=== PATIENT | female | born 1975 | race African-American/Black ===

== ENCOUNTER 2024-11-17 00:46 | Day surgery (SDC) | payer OTHER, SELFPAY ==
[2024-10-29 08:43] VITALS: BMI 25.3
--- OUTSIDE RECORDS SUMMARY | 2024-11-17 00:48 | XMS_ITS | Data Portability ---
Author Organization [facility] Arechiga Address [address] [place] [place] [address] Assessment Encounter Date Assessment Date Assessment LastModified by Organization Details LastModified Time 01/28/2023 01/28/2023 Is currently not using any substances. Encouraged her to have a plan in place for moments that she may be feeling the urge to use. I suggested she have someone she can call or an AA meeting she can attend. giorgio Not available 01/28/2023 12:02:51 Plan of Treatment Reminders Order Date Submit Date Provider Last Modified By Organization Details Last Modified Time Details Appointments ANNUAL 30 2024 03:00P M Isabel Porras MD Not available Not available Not available ANY 15 2024 11:00A M Myranda Granados MD Not available Not available Not available Lab urinalysi s, dipstick 2024 025 [email or web address] In-Office Order, Internal Use Only DO Not Attach Compendium DO Not Attach Compendium, Do Not Delete/merge, [id number] 10/04/2024 15:17:58 bacterial vaginosis + vaginitis panel, vaginal 2024 025 DAVID LABZACH, [address], [address], [place], [address], 10/10/2024 06:43:33 urinalysi s macro (dipstick ) panel, urine 2024 025 DAVID WEINSTEIN, [address], [address], [place], [address], 08/17/2024 08:28:21 CMP, serum or plasma 2024 025 [facility], [address], [address], [place], [address], 08/17/2024 08:28:19 CBC 2024 025 DAVID [facility], [address], [address], [place], [address], 08/17/2024 08:28:22 vitamin D, 25-hydrox y, total, serum 2024 025 [place] [facility], [address] [facility] [address], [address], [place], [address], 08/17/2024 08:28:24 lipid panel, serum 2024 025 [place] [facility], [address] [place], [place] [address]mar[address], [address], [place], [address], 08/17/2024 08:28:18 TSH, ultra-sen sitive, serum 2022 023 [facility], [address], [address], [place], [address], 01/08/2023 06:18:00 unlisted lab - nuswab bv, CT/GC/TV 2022 023 [place] [facility], [address], [address], [place], [address], 01/09/2023 08:35:00 pap, IG + reflex HPV 2022 023 [facility], [address] [place], [place] [address]mar[address], [address], [place], [address], 01/10/2023 15:11:02 CBC w/ auto diff 2022 023 [facility] [facility], [address], [address], [place], [place], [address], 11/25/2022 19:08:46 urinalysi s, dipstick 2022 023 [facility], [facility] [address], [address], [place], [address], 11/25/2022 19:08:45 lipid panel, serum 2022 023 [place] [facility], [facility] [address], [address], [place], [address], 11/25/2022 19:08:44 CMP, serum or plasma 2022 023 [facility], [facility] [address], [address], [place], [address], 11/25/2022 19:08:44 HIV 1 + 2, meaningfu l use set 2022 023 [facility], [facility], [address], [place], [address], 11/26/2022 06:15:31 Hepatitis C IgG Ab, qual, serum 2022 023 [facility], [facility] [facility] [address], [address], [place], [address], 11/26/2022 06:15:30 Referral orthopedi c surgeon referral 2024 025 [facility], [address], [place], [address], 09/27/2024 15:02:45 gastroent erologist referral 2024 025 DVAID Villela MD, [address], [place], [address], 09/30/2024 04:21:17 general surgeon referral - L. breast mass 2022 023 DAVID Santiago MD, [address], [address], [place], [address], 01/21/2023 10:48:53 gastroent erologist referral - Follow up colonosco py 2022 023 earl Mooney MD, [address] [place], [address], 06/10/2023 10:22:31 gynecolog ist referral 2022 023 [email or web address] Not available 11/25/2022 15:34:15 Procedures None recorded. Surgeries None recorded. Imaging MAMMO, diagnosti c, digital, bilateral - Left breast mass 2022 023 [facility], [address] [place], [address], 12/04/2022 16:59:55 US, breast, bilateral - Breast mass, left 2022 023 [facility], [address] [place], [address], 12/05/2022 09:37:59 Medication Orders paroxetin e 10 mg tablet 2024 025 [place] [id number], [address] [place], [place], [id number], 10/04/2024 15:23:32 Replens vaginal gel 2024 025 [place] [facility][id number], [address] [place], [place], [id number], 10/04/2024 15:23:37 naproxen 500 mg tablet 2024 025 [facility][id number], [address] [place], [place], [id number], 08/06/2024 15:25:06 Paxil 10 mg tablet 2022 023 [facility][id number], [address] [place], [place], [id number], 08/06/2024 14:40:47 Paxil 10 mg tablet 2022 023 [facility] #[id number], [address] [place], [place], [id number], 08/06/2024 14:40:47 Patient TargetsNo targets recorded. Patient Instructions Encounter Date Encounter Id Patient Instructions Last Modified By Organization Details Last Modified Time 11/22/2022 [id number] Quitting Tobacco : Care Instructions [email or web address] Not available 11/22/2022 14:47:54 Labs MMG +/- General surgeon [facility] Follow up in 2 weeks Most recent [facility] from [facility], please oajao Not available 11/22/2022 14:41:39 08/06/2024 [id number] [facility] Orthoped[facility] Naproxen PRN GI Stop smoking Most recent MM[facility] Follow up in 6 months and PRN oajao Not available 08/06/2024 15:23:04 Reason for Referral Acid Bath Mixer Referral for Screening for malignant neoplasm of colon Screening colonoscopy, please Follow up colonoscopy Referring Physician: Myranda Granados, Internal Medicine, Encounter Date: 11/22/2022 Sales Solutions Representative Referral for Sc reening for malignant neoplasm of cervix Referring Physician: Myranda Granados, Internal Medicine, Encounter Date: 11/22/2022 General Surgeon Referral for Mass of left breast L. breast mass Referring Physician: Myranda Granados, Internal Medicine, Encounter Date: 11/22/2022 Acid Bath Mixer Referral for Tubular adenomatous polyp of colon Hx of Tubular adenoma, follow up colonoscopy. Hx of breast cancer Referring Physician: Myranda Granados, Internal Medicine, Encounter Date: 08/06/2024 Orthopedic Surgeon Referral for Sprain of ligament of finger of right hand Sprain of the ring finger of the right hand Referring Physician: Myranda Granados, Internal Medicine, Encounter Date: 08/06/2024 Results Created Date Observation Date Name Description Value Unit Range Abnormal Flag Note LastModifiedBy Organization Detail LastModifiedTime 11/26/1911/25/2022 LIPID PANEL cholesterol, total 168.0 mg/dL 140.0- 200.0 Not Available [facility] Department [address] [place] [address], [address], 11/25/2022 19:08:44 11/26/19 23 11/25/2022 LIPID PANEL triglyceride s 97 mg/dL <=150 Not Available [facility] Department [address] [place] [address], [address], 11/25/2022 19:08:44 11/26/19 23 11/25/2022 LIPID PANEL HDL cholesterol 61.5 mg/dL 40.0-1 00.0 Not Available [facility] Department [address] [place] [address], [address], 11/25/2022 19:08:44 11/26/19 23 11/25/2022 LIPID PANEL VLDL cholesterol rick 19.40 mg/dL 5.00-4 0.00 Not Available [facility] Department [address] [place] [address], [address], 11/25/2022 19:08:44 11/26/19 23 11/25/2022 LIPID PANEL LDL chol calc ([facility]) 88.9 mg/dL 0.0-99 .0 Not Available [facility] Department [address] [place], [address], 11/25/2022 19:08:44 11/26/19 23 11/25/2022 COMP. METAB OLIC PANEL (14) glucose 95 mg/dL 65-99 ANION GP 15.0 mmol/ L N OSMOL 279.0 mOsM/ L N REFER ENCE RANGE : 275.0 -301. 0 Not Available [facility] Department [address] [place], [address], 11/25/2022 19:08:44 11/26/19 23 11/25/2022 COMP. METAB OLIC PANEL (14) BUN 13 mg/dL 8-26 Not Available [facility] Department [address] [place], [address], 11/25/2022 19:08:44 11/26/19 23 11/25/2022 COMP. METAB OLIC PANEL (14) creatinine 0.62 mg/dL 0.50-1 .40 Not Available [facility] Department [address] [place], [address], 11/25/2022 19:08:44 11/26/19 23 11/25/2022 COMP. METAB OLIC PANEL (14) eGFR 109 mL/mi n/1.7 3 >=60 Not Available [facility] Department [address] [place], [address], 11/25/2022 19:08:44 11/26/19 23 11/25/2022 COMP. METAB OLIC PANEL (14) BUN/creatini ne ratio 21.1 Not Available [facility] Department [address] [place], [address], 11/25/2022 19:08:44 11/26/19 23 11/25/2022 COMP. METAB OLIC PANEL (14) sodium 140.0 mmol/ L 136.0- 144.0 Not Available [facility] Department [address] [place], [address], 11/25/2022 19:08:44 11/26/19 23 11/25/2022 COMP. METAB OLIC PANEL (14) potassium 4.5 mmol/ L 3.5-5. 3 Not Available [facility] Department [address] [place], [address], 11/25/2022 19:08:44 11/26/19 23 11/25/2022 COMP. METAB OLIC PANEL (14) chloride 103 mmol/ l 101-11 1 Not Available [facility] Department [address] [place], [address], 11/25/2022 19:08:44 11/26/19 23 11/25/2022 COMP. METAB OLIC PANEL (14) carbon dioxide, total 26.3 mmol/ L 21.0-3 2.0 Not Available [facility] Department [address] [place], [address], 11/25/2022 19:08:44 11/26/19 23 11/25/2022 COMP. METAB OLIC PANEL (14) calcium 9.3 mg/dL 8.2-10 .0 Not Available [facility] Department [address] [place], [address], 11/25/2022 19:08:44 11/26/19 23 11/25/2022 COMP. METAB OLIC PANEL (14) protein, total 6.6 g/dL 6.7-8. 2 below low normal Not Available [facility] Department [address] [place], [address], 11/25/2022 19:08:44 11/26/19 23 11/25/2022 COMP. METAB OLIC PANEL (14) albumin 4.1 g/dL 3.5-5. 5 Not Available [facility] Department [address] [place], [address], 11/25/2022 19:08:44 11/26/19 23 11/25/2022 COMP. METAB OLIC PANEL (14) globulin, total 2.5 g/dL 1.5-4. 5 Not Available [facility] Department [address] [place], [address], 11/25/2022 19:08:44 11/26/19 23 11/25/2022 COMP. METAB OLIC PANEL (14) A/G ratio 1.7 Not Available [facility] Department [address] [place], [address], 11/25/2022 19:08:44 11/26/19 23 11/25/2022 COMP. METAB OLIC PANEL (14) bilirubin, total 0.2 mg/dL 0.0-1. 2 Not Available [facility] Department [address] [place], [address], 11/25/2022 19:08:44 11/26/19 23 11/25/2022 COMP. METAB OLIC PANEL (14) alkaline phosphatase 113.2 IU/L 42.0-1 21.0 Not Available [facility] Department [address] [place] [address], [address], 11/25/2022 19:08:44 11/26/19 23 11/25/2022 COMP. METAB OLIC PANEL (14) AST (SGOT) 15.3 U/L 10.0-4 2.0 Not Available [facility] Department [address] [place] [address], [address], 11/25/2022 19:08:44 11/26/19 23 11/25/2022 COMP. METAB OLIC PANEL (14) ALT (SGPT) 14.6 U/L 10.0-6 0.0 Not Available [facility] Department [address] [place] [address], [address], 11/25/2022 19:08:44 11/26/19 23 11/25/2022 URINA LYSIS , ROUTI NE specific gravity 1.010 1.001- 1.035 Not Available [facility] Department [address] [place], [address], 11/25/2022 19:08:45 11/26/19 23 11/25/2022 URINA LYSIS , ROUTI NE pH 7.0 5.0-7. 0 Not Available [facility] Department [address] [place], [address], 11/25/2022 19:08:45 11/26/19 23 11/25/2022 URINA LYSIS , ROUTI NE urine-color YELLOW yellow Not Available [facility] Department [address], [place], [address], 11/25/2022 19:08:45 11/26/19 23 11/25/2022 URINA LYSIS , ROUTI NE appearance CLEAR Not Available [facility] Department [address], [place], [address], 11/25/2022 19:08:45 11/26/19 23 11/25/2022 URINA LYSIS , ROUTI NE WBC esterase SMALL abnormal Not Available [facility] Department [address] [facility], [place], [address], 11/25/2022 19:08:45 11/26/19 23 11/25/2022 URINA LYSIS , ROUTI NE protein COMMEN T NEGAT VICKIE Not Available [facility] Department [address] [facility], [place], [address], 11/25/2022 19:08:45 11/26/19 23 11/25/2022 URINA LYSIS , ROUTI NE glucose COMMEN T NEGAT VICKIE Not Available [facility] Department [address] [facility], [place], [address], 11/25/2022 19:08:45 11/26/19 23 11/25/2022 URINA LYSIS , ROUTI NE ketones COMMEN T NEGAT VICKIE Not Available [facility] Department [address] [place], [address], 11/25/2022 19:08:45 11/26/19 23 11/25/2022 URINA LYSIS , ROUTI NE occult blood SMALL abnormal Not Available [facility] Department [address] [place], [address], 11/25/2022 19:08:45 11/26/19 23 11/25/2022 URINA LYSIS , ROUTI NE bilirubin COMMEN T NEGAT VICKIE Not Available [facility] Department [address] [place], [address], 11/25/2022 19:08:45 11/26/19 23 11/25/2022 URINA LYSIS , ROUTI NE urobilinogen ,semi-qn 0.2 eu/dL <=1.0 Not Available [facility] Department [address] [facility], [place], [address], 11/25/2022 19:08:45 11/26/19 23 11/25/2022 URINA LYSIS , ROUTI NE nitrite, urine COMMEN T negati ve NEGAT VICKIE Not Available [facility] Department [address] [place], [address], 11/25/2022 19:08:45 11/26/1911/25/2022 CBC WITH DIFFE RENTI AL/PL ATELE T WBC 5.7 K/uL 3.4-10 .8 Not Available [facility] Department [address] [place], [address], 11/25/2022 19:08:46 11/26/19 23 11/25/2022 CBC WITH DIFFE RENTI AL/PL ATELE T RBC 4.1 M/uL 4.2-5. 4 below low normal Not Available [facility] Department [address] [place], [address], 11/25/2022 19:08:46 11/26/19 23 11/25/2022 CBC WITH DIFFE RENTI AL/PL ATELE T hemoglobin 12.3 g/dL 11.5-1 5.5 Not Available [facility] Department [address] [place], [address], 11/25/2022 19:08:46 11/26/19 23 11/25/2022 CBC WITH DIFFE RENTI AL/PL ATELE T hematocrit 36.5 % 36.0-4 8.0 Not Available [facility] Department [address] [place], [address], 11/25/2022 19:08:46 11/26/19 23 11/25/2022 CBC WITH DIFFE RENTI AL/PL ATELE T MCV 88 fL 80-95 Not Available [facility] Department [address] [place], [address], 11/25/2022 19:08:46 11/26/19 23 11/25/2022 CBC WITH DIFFE RENTI AL/PL ATELE T MCH 30 pg 27-32 Not Available [facility] Department [address] [place], [address], 11/25/2022 19:08:46 11/26/19 23 11/25/2022 CBC WITH DIFFE RENTI AL/PL ATELE T MCHC 34 g/dL 32-36 Not Available [facility] Department [address] [place], [address], 11/25/2022 19:08:46 11/26/19 23 11/25/2022 CBC WITH DIFFE RENTI AL/PL ATELE T RDW 14.8 % 11.5-1 4.5 above high normal Not Available [facility] Department [address] [place], [address], 11/25/2022 19:08:46 11/26/1911/25/2022 CBC WITH DIFFE RENTI AL/PL ATELE T platelets 465 K/uL 155-37 9 above high normal MPV 10.1 FL 8.9-1 2.7 N Not Available [facility] Department [address] [place], [address], 11/25/2022 19:08:46 11/26/19 23 11/25/2022 CBC WITH DIFFE RENTI AL/PL ATELE T neutrophils 51.9 % 40.0-7 4.0 Not Available [facility] Department [address] [place], [address], 11/25/2022 19:08:46 11/26/19 23 11/25/2022 CBC WITH DIFFE RENTI AL/PL ATELE T lymphs 38.7 % 14.0-4 6.0 Not Available [facility] Department [address] [place], [address], 11/25/2022 19:08:46 11/26/19 23 11/25/2022 CBC WITH DIFFE RENTI AL/PL ATELE T monocytes 5.3 % 4.0-12 .0 Not Available [facility] Department [address] [place], [address], 11/25/2022 19:08:46 11/26/19 23 11/25/2022 CBC WITH DIFFE RENTI AL/PL ATELE T eos 3 % 0-5 Not Available [facility] Department [address] [place], [address], 11/25/2022 19:08:46 11/26/19 23 11/25/2022 CBC WITH DIFFE RENTI AL/PL ATELE T basos 0.4 % 0.0-1. 0 Not Available [facility] Department [address] [place], [address], 11/25/2022 19:08:46 11/26/19 23 11/25/2022 CBC WITH DIFFE RENTI AL/PL ATELE T neutrophils (absolute) 3.0 K/uL 1.4-7. 0 Not Available [facility] Department [address] [place], [address], 11/25/2022 19:08:46 11/26/19 23 11/25/2022 CBC WITH DIFFE RENTI AL/PL ATELE T lymphs (absolute) 2.2 K/uL 0.7-3. 1 Not Available [facility] Department [address] [place], [address], 11/25/2022 19:08:46 11/26/19 23 11/25/2022 CBC WITH DIFFE RENTI AL/PL ATELE T monocytes(ab solute) 0.3 K/uL 0.1-0. 9 Not Available [facility] Department [address] [place] [address], [address], 11/25/2022 19:08:46 11/26/19 23 11/25/2022 CBC WITH DIFFE RENTI AL/PL ATELE T eos (absolute) 0.2 K/uL 0.0-0. 4 Not Available [facility] Department [address] [place], [address], 11/25/2022 19:08:46 11/26/1911/25/2022 CBC WITH DIFFE RENTI AL/PL ATELE T baso (absolute) 0.0 K/uL 0.0-0. 3 Not Available [facility] Department [address] [place], [address], 11/25/2022 19:08:46 11/26/19 23 11/25/2022 CBC WITH DIFFE RENTI AL/PL ATELE T immature granulocytes 0.9 % Not Available [facility] Department [address] [place] [address], [address], 11/25/2022 19:08:46 11/26/19 23 11/25/2022 CBC WITH DIFFE RENTI AL/PL ATELE T immature grans (abs) 0.1 K/uL Not Available [facility] Department [address] [place], [address], 11/25/2022 19:08:46 11/26/19 23 11/25/2022 CBC WITH DIFFE RENTI AL/PL ATELE T NRBC 0 % Not Available [facility] Department [address] [place], [address], 11/25/2022 19:08:46 11/26/19 23 11/26/2022 HCV ANTIB EZEQUIEL hep C virus Ab NON REACTI VE nonrea ctive HCV antib ezequiel alone does not diffe renti ate betwe en previ ously resol aydin infec tion and activ e infec tion. Equiv ocal and React vickie HCV antib ezequiel resul ts shoul d be follo wed up with an HCV RNA test to suppo rt the diagn osis of activ e HCV infec tion. Not Available [facility] ([facility]) [address] [facility], [place], [address], 11/26/2022 06:15:30 11/26/1911/26/2022 HIV AB/P2 4 AG WITH REFLE X HIV Ab/P24 Ag screen NON REACTI VE nonrea ctive HIV Negat vickie HIV-1 /HIV- 2 antib odies and HIV-1 p24 antig en were NOT detec naomi. There is no labor atory evide nce of HIV infec tion. Not Available [facility] ([facility]) [address], [place], [address], 11/26/2022 06:15:31 11/26/19 23 11/25/2022 MICRO SCOPI C EXAMI NATIO N WBC 0-2 Not Available [facility] Department [address] [place] [address], [address], 11/25/2022 19:08:45 11/26/19 23 11/25/2022 MICRO SCOPI C EXAMI NATIO N RBC COMMEN T NONE SEEN Not Available [facility] Department [address] [place], [address], 11/25/2022 19:08:45 11/26/19 23 11/25/2022 MICRO SCOPI C EXAMI NATIO N epithelial cells (non renal) 2+ Not Available [facility] Department [address] [place], [address], 11/25/2022 19:08:45 11/26/19 23 11/25/2022 MICRO SCOPI C EXAMI NATIO N crystal type COMMEN T URINE AMORP HOUS 1+ N Not Available [facility] Department [address] [place], [address], 11/25/2022 19:08:45 11/26/1911/25/2022 MICRO SCOPI C EXAMI NATIO N bacteria TRACE abnormal Not Available [facility] Department [address] [place], [address], 11/25/2022 19:08:45 01/08/20 23 01/09/2023 NUSWA B BV, CT/GC /TV atopobium vaginae HIGH - 2 score abnormal Not Available [facility] ([facility]) [address] [facility], [place], [address], 01/09/2023 08:35:00 01/08/2001/09/2023 NUSWA B BV, CT/GC /TV bvab 2 HIGH - 2 score abnormal Not Available [facility] ([facility]) [address] [facility] [facility], [place], [address], 01/09/2023 08:35:00 01/08/2001/09/2023 NUSWA B BV, CT/GC /TV megasphaera 1 HIGH - 2 score abnormal Calcu late total score by david peralta the 3 indiv idual bacte rial vagin osis (BV) marke r score s toget her. Total score is inter prete d as follo ws: Total score 0-1: Indic ates the absen ce of BV. Total score 2: Indet ermin ate for BV. Addit ional clini rick data shoul d be evalu ated to estab marce a diagn osis. Total score 3-6: Indic ates the prese nce of BV. This test was devel oped and its perfo rmanc e manyd cteri stics deter mined by [facility]. It has not been clear ed or appro aydin by the Food and Drug Admin istra tion. Not Available [facility] ([facility]) [address] [place], [address], 01/09/2023 08:35:00 08/22/20 23 01/09/2023 NUSWA B BV, CT/GC /TV trich vag by VANESSA NEGATI VE negati ve Not Available [facility] ([facility]) [address] [place], [address], 01/09/2023 08:35:00 01/08/20 23 01/09/2023 NUSWA B BV, CT/GC /TV chlamydia trachomatis, VANESSA NEGATI VE negati ve Not Available [facility] ([facility]) [address] [place], [address], 01/09/2023 08:35:00 01/08/2001/09/2023 NUSWA B BV, CT/GC /TV neisseria gonorrhoeae, VANESSA NEGATI VE negati ve Not Available [facility] ([facility]) [address] [place], [address], 01/09/2023 08:35:00 01/08/20 23 01/08/2023 IGP,A PTIMA HPV,A GE GDLN age gdln acog testing 30-65 Not Available [facility] ([facility]) [address] [place], [address], 01/10/2023 15:11:02 01/08/20 23 01/09/2023 IGP, APTIM A HPV, RFX 16/18 ,45 HPV aptima NEGATI VE negati ve This nucle ic acid ampli ficat ion test detec ts fourt een high- risk HPV types (16,1 8,31, 33,35 ,39,4 5,51, 52,56 ,58,5 9,66, 68) witho ut diffe renti ation . Not Available [facility] ([facility]) [address] [place], [address], 01/10/2023 15:11:03 01/08/20 23 01/10/2023 IGP, APTIM A HPV, RFX 16/18 ,45 diagnosis: COMMEN T NEGAT VICKIE FOR INTRA EPITH ELIAL LESIO N OR BING COLON . Not Available [facility] ([facility]) [address] [facility], [place], [address], 01/10/2023 15:11:03 01/08/20 23 01/10/2023 IGP, APTIM A HPV, RFX 16/18 ,45 specimen adequacy: TANO T Satis facto ry for evalu ation . Endoc ervic al and/o r squam ous metap lasti c cells (endo cervi rick compo nent) are prese nt. Not Available [facility] ([facility]) [address] [place], [address], 01/10/2023 15:11:03 01/08/20 23 01/10/2023 IGP, APTIM A HPV, RFX 16/18 ,45 clinician provided ICD10: TANO Shin Z11.3 Z12.4 Not Available [facility] ([facility]) [address] [place], [address], 01/10/2023 15:11:03 01/08/20 23 01/10/2023 IGP, APTIM A HPV, RFX 16/18 ,45 performed by: TANO weiner, Cytot rayray shin (ASCP ) Not Available [facility] ([facility]) [address] [place], [address], 01/10/2023 15:11:03 01/08/20 23 01/10/2023 IGP, APTIM A HPV, RFX 16/18 ,45 . . Not Available [facility] ([facility]) [address] [place], [address], 01/10/2023 15:11:03 01/08/20 23 01/10/2023 IGP, APTIM A HPV, RFX 16/18 ,45 note: TANO Shin The Pap smear is a scree jony test ileana pearce to aid in the detec tion of morteza ligna nt and malig nant condi tions of the uteri ne cervi x. It is not a diagn ostic proce dure and shoul d not be used as the sole means of detec ting cervi rick cance r. Both false -posi tive and false -nega tive repor ts do occur . Not Available [facility] ([facility]) [address] [place], [address], 01/10/2023 15:11:03 01/08/20 23 01/10/2023 IGP, APTIM A HPV, RFX 16/18 ,45 test methodology: - The Thin Prep( R) Image r was unabl e to read this speci men. There fore a kota goins revie w was perfo rmed. Not Available [facility] ([facility]) [address] [place], [address], 01/10/2023 15:11:03 01/08/2001/10/2023 IGP, APTIM A HPV, RFX 16/18 ,45 HPV genotype reflex COMMEN T Crite laura not met, HPV Genot ype not perfo rmed. Not Available [facility] ([facility]) [address] [place], [address], 01/10/2023 15:11:03 01/08/2001/08/2023 TSH RFX ON ABNOR MAL TO FREE T4 TSH 0.531 uIU/m L 0.450- 4.500 Not Available [facility] ([facility]) [address] [place], [address], 01/08/2023 06:18:00 08/17/1908/17/2024 LIPID PANEL cholesterol, total 220 mg/dL 100-19 9 above high normal Not Available [facility] ([facility]) [address] [place], [address], 08/17/2024 08:28:18 08/17/1908/17/2024 LIPID PANEL triglyceride s 94 mg/dL 0-149 Not Available [facility] ([facility]) [address] [facility] [place], [address], 08/17/2024 08:28:18 08/17/19 25 08/17/2024 LIPID PANEL HDL cholesterol 89 mg/dL >39 Not Available [facility] ([facility]) [address] [facility] [place], [address], 08/17/2024 08:28:18 08/17/19 25 08/17/2024 LIPID PANEL VLDL cholesterol rick 16 mg/dL 5-40 Not Available [facility] ([facility]) [address] [facility] [place], [address], 08/17/2024 08:28:18 08/17/19 25 08/17/2024 LIPID PANEL LDL chol calc ([facility]) 115 mg/dL 0-99 above high normal Not Available [facility] ([facility]) [address] [place], [address], 08/17/2024 08:28:18 08/17/19 25 08/17/2024 COMP. METAB OLIC PANEL (14) glucose 99 mg/dL 70-99 Not Available [facility] ([facility]) [address] [facility] [place], [address], 08/17/2024 08:28:19 08/17/19 25 08/17/2024 COMP. METAB OLIC PANEL (14) BUN 14 mg/dL 6-24 Not Available [facility] ([facility]) [address] [place], [address], 08/17/2024 08:28:19 08/17/19 25 08/17/2024 COMP. METAB OLIC PANEL (14) creatinine 0.74 mg/dL 0.57-1 .00 Not Available [facility] ([facility]) [address] [place], [address], 08/17/2024 08:28:19 08/17/19 25 08/17/2024 COMP. METAB OLIC PANEL (14) eGFR 98 mL/mi n/1.7 3 >59 Not Available [facility] ([facility]) [address] [facility], [place], [address], 08/17/2024 08:28:19 08/17/19 25 08/17/2024 COMP. METAB OLIC PANEL (14) BUN/creatini ne ratio 19 9-23 Not Available [facility] ([facility]) [address] [facility], [place], [address], 08/17/2024 08:28:19 08/17/19 25 08/17/2024 COMP. METAB OLIC PANEL (14) sodium 142 mmol/ L 134-14 4 Not Available [facility] ([facility]) [address] [facility], [place], [address], 08/17/2024 08:28:19 08/17/19 25 08/17/2024 COMP. METAB OLIC PANEL (14) potassium 4.3 mmol/ L 3.5-5. 2 Not Available [facility] ([facility]) [address] [facility], [place], [address], 08/17/2024 08:28:19 08/17/19 25 08/17/2024 COMP. METAB OLIC PANEL (14) chloride 105 mmol/ L 96-106 Not Available [facility] ([facility]) [address] [facility], [place], [address], 08/17/2024 08:28:19 08/17/19 25 08/17/2024 COMP. METAB OLIC PANEL (14) carbon dioxide, total 23 mmol/ L 20-29 Not Available [facility] ([facility]) [address] [facility], [place], [address], 08/17/2024 08:28:19 08/17/19 25 08/17/2024 COMP. METAB OLIC PANEL (14) calcium 9.3 mg/dL 8.7-10 .2 Not Available [facility] ([facility]) [address] [facility] [place], [address], 08/17/2024 08:28:19 08/17/19 25 08/17/2024 COMP. METAB OLIC PANEL (14) protein, total 6.7 g/dL 6.0-8. 5 Not Available [facility] ([facility]) [address] [facility] [place], [address], 08/17/2024 08:28:19 08/17/19 25 08/17/2024 COMP. METAB OLIC PANEL (14) albumin 4.3 g/dL 3.8-4. 9 Not Available [facility] ([facility]) [address] [facility] [place], [address], 08/17/2024 08:28:19 08/17/19 25 08/17/2024 COMP. METAB OLIC PANEL (14) globulin, total 2.4 g/dL 1.5-4. 5 Not Available [facility] ([facility]) [address] [facility] [place], [address], 08/17/2024 08:28:19 08/17/19 25 08/17/2024 COMP. METAB OLIC PANEL (14) bilirubin, total 0.3 mg/dL 0.0-1. 2 Not Available [facility] ([facility]) [address] [facility] [place], [address], 08/17/2024 08:28:19 08/17/19 25 08/17/2024 COMP. METAB OLIC PANEL (14) alkaline phosphatase 139 IU/L 44-121 above high normal Not Available [facility] ([facility]) [address] [facility] [place], [address], 08/17/2024 08:28:19 08/17/19 25 08/17/2024 COMP. METAB OLIC PANEL (14) AST (SGOT) 20 IU/L 0-40 Not Available [facility] ([facility]) [address] [facility], [place], [address], 08/17/2024 08:28:19 08/17/19 25 08/17/2024 COMP. METAB OLIC PANEL (14) ALT (SGPT) 19 IU/L 0-32 Not Available [facility] ([facility]) [address] [facility], [place], [address], 08/17/2024 08:28:19 08/17/19 25 08/17/2024 URINA LYSIS , ROUTI NE specific gravity 1.015 1.005- 1.030 Not Available [facility] ([facility]) [address] [facility], [place], [address], 08/17/2024 08:28:21 08/17/19 25 08/17/2024 URINA LYSIS , ROUTI NE pH 6.5 5.0-7. 5 Not Available [facility] ([facility]) [address] [facility], [place], [address], 08/17/2024 08:28:21 08/17/19 25 08/17/2024 URINA LYSIS , ROUTI NE urine-color YELLOW yellow Not Available [facility] ([facility]) [address] [facility], [place], [address], 08/17/2024 08:28:21 08/17/19 25 08/17/2024 URINA LYSIS , ROUTI NE appearance CLEAR clear Not Available [facility] ([facility]) [address] [facility], [place], [address], 08/17/2024 08:28:21 08/17/19 25 08/17/2024 URINA LYSIS , ROUTI NE WBC esterase NEGATI VE negati ve Not Available [facility] ([facility]) [address] [facility], [place], [address], 08/17/2024 08:28:21 08/17/19 25 08/17/2024 URINA LYSIS , ROUTI NE protein NEGATI VE negati ve/tra ce Not Available [facility] ([facility]) [address] [place], [address], 08/17/2024 08:28:21 08/17/19 25 08/17/2024 URINA LYSIS , ROUTI NE glucose NEGATI VE negati ve Not Available [facility] ([facility]) [address] [place], [address], 08/17/2024 08:28:21 08/17/19 25 08/17/2024 URINA LYSIS , ROUTI NE ketones NEGATI VE negati ve Not Available [facility] ([facility]) [address] [place], [address], 08/17/2024 08:28:21 08/17/19 25 08/17/2024 URINA LYSIS , ROUTI NE occult blood NEGATI VE negati ve Not Available [facility] ([facility]) [address] [place], [address], 08/17/2024 08:28:21 08/17/19 25 08/17/2024 URINA LYSIS , ROUTI NE bilirubin NEGATI VE negati ve Not Available [facility] ([facility]) [address] [place], [address], 08/17/2024 08:28:21 08/17/19 25 08/17/2024 URINA LYSIS , ROUTI NE urobilinogen ,semi-qn 1.0 mg/dL 0.2-1. 0 Not Available [facility] ([facility]) [address] [place], [address], 08/17/2024 08:28:21 08/17/19 25 08/17/2024 URINA LYSIS , ROUTI NE nitrite, urine NEGATI VE negati ve Not Available [facility] ([facility]) [address] [place], [address], 08/17/2024 08:28:21 08/17/19 25 08/17/2024 URINA LYSIS , ROUTI NE microscopic examination COMMEN T Micro scopi c not indic ated and not perfo rmed. Not Available [facility] ([facility]) [address] [facility], [place], [address], 08/17/2024 08:28:21 08/17/1908/17/2024 CBC, PLATE LET, NO DIFFE RENTI AL WBC 6.0 x10e3 /uL 3.4-10 .8 Not Available [facility] ([facility]) [address] [facility], [place], [address], 08/17/2024 08:28:22 08/17/1908/17/2024 CBC, PLATE LET, NO DIFFE RENTI AL RBC 3.91 x10e6 /uL 3.77-5 .28 Not Available [facility] ([facility]) [address] [facility], [place], [address], 08/17/2024 08:28:22 08/17/1908/17/2024 CBC, PLATE LET, NO DIFFE RENTI AL hemoglobin 13.6 g/dL 11.1-1 5.9 Not Available [facility] ([facility]) [address] [facility], [place], [address], 08/17/2024 08:28:22 08/17/1908/17/2024 CBC, PLATE LET, NO DIFFE RENTI AL hematocrit 39.7 % 34.0-4 6.6 Not Available [facility] ([facility]) [address] [facility], [place], [address], 08/17/2024 08:28:22 08/17/1908/17/2024 CBC, PLATE LET, NO DIFFE RENTI AL MCV 102 fL 79-97 above high normal Not Available [facility] ([facility]) [address] [facility], [place], [address], 08/17/2024 08:28:22 08/17/19 25 08/17/2024 CBC, PLATE LET, NO DIFFE RENTI AL MCH 34.8 pg 26.6-3 3.0 above high normal Not Available [facility] ([facility]) [address] [facility], [place], [address], 08/17/2024 08:28:22 08/17/1908/17/2024 CBC, PLATE LET, NO DIFFE RENTI AL MCHC 34.3 g/dL 31.5-3 5.7 Not Available [facility] ([facility]) [address] [place], [address], 08/17/2024 08:28:22 08/17/1908/17/2024 CBC, PLATE LET, NO DIFFE RENTI AL RDW 13.9 % 11.7-1 5.4 Not Available [facility] ([facility]) [address] [place], [address], 08/17/2024 08:28:22 08/17/1908/17/2024 CBC, PLATE LET, NO DIFFE RENTI AL platelets 438 x10e3 /uL 150-45 0 Not Available [facility] ([facility]) [address] [place], [address], 08/17/2024 08:28:22 08/17/1908/17/2024 VITAM IN D, 25-HY DROXY vitamin D, 25-hydroxy 20.1 NG/mL 30.0-1 00.0 below low normal Vitam in D defic iency has been defin ed by the Insti tute of Medic ine and an Endoc rine Socie ty pract ice guide line as a level of serum 25-OH vitam in D less than 20 ng/mL (1,2) . The Endoc rine Socie ty went on to furth er defin e vitam in D insuf ficie ncy as a level betwe en 21 and 29 ng/mL (2). 1. IOM (Inst itute of Medic ine). 2010. Dieta ry refer ence intak es for calci um and D. Naseem walker [place]: The [facility] . 2. Roberto velazquez MF, Esperanza muir [place], Satinder off-F ozzy i BAINS, et al. Evalu ation , treat ment, and preve ntion of vitam in D defic iency : an Endoc rine Socie ty clini rick pract ice guide line. JCEM. 2010; 96(7) :1911 -30. Not Available [facility] ([facility]) [address] [facility], [place], [address], 08/17/2024 08:28:23 10/05/1910/08/2024 NUSWA B BV VANESSA+C AND6+ CT/GC /T... hsv 1 VANESSA NEGATI VE negati ve Not Available [facility] ([facility]) [address] [place], [address], 10/10/2024 06:43:33 10/05/19 25 10/08/2024 NUSWA B BV VANESSA+C AND6+ CT/GC /T... hsv 2 VANESSA NEGATI VE negati ve Not Available [facility] ([facility]) [address] [place], [address], 10/10/2024 06:43:33 10/05/19 25 10/09/2024 NUSWA B BV VANESSA+C AND6+ CT/GC /T... atopobium vaginae HIGH - 2 score abnormal Not Available [facility] ([facility]) [address] [place], [address], 10/10/2024 06:43:33 10/05/1910/09/2024 NUSWA B BV VANESSA+C AND6+ CT/GC /T... bvab 2 HIGH - 2 score abnormal Not Available [facility] ([facility]) [address] [place], [address], 10/10/2024 06:43:33 10/05/19 25 10/09/2024 NUSWA B BV VANESSA+C AND6+ CT/GC /T... megasphaera 1 HIGH - 2 score abnormal Calcu late total score by david peralta the 3 indiv idual bacte rial vagin osis (BV) marke r score s toget her. Total score is inter prete d as follo ws: Total score 0-1: Indic ates the absen ce of BV. Total score 2: Indet ermin ate for BV. Addit ional clini rick data shoul d be evalu ated to estab marce a diagn osis. Total score 3-6: Indic ates the prese nce of BV. Not Available [facility] ([facility]) [address] [place], [address], 10/10/2024 06:43:33 10/05/1910/09/2024 NUA B BV VANESSA+C AND6+ CT/GC /T... aaron albicans, VANESSA NEGATI VE negati ve Not Available [facility] ([facility]) [address] [place], [address], 10/10/2024 06:43:33 10/05/19 25 10/09/2024 NUA B BV VANESSA+C AND6+ CT/GC /T... aaron glabrata, VANESSA NEGATI VE negati ve Not Available [facility] ([facility]) [address] [place], [address], 10/10/2024 06:43:33 10/05/19 25 10/09/2024 NUA B BV VANESSA+C AND6+ CT/GC /T... C parapsilosis /tropicalis NEGATI VE negati ve This assay does not diffe renti ate C. tropi calis and C. parap ollie is. Not Available [facility] ([facility]) [address] [place], [address], 10/10/2024 06:43:33 10/05/19 25 10/09/2024 NUSWA B BV VANESSA+C AND6+ CT/GC /T... aaron lusitaniae, VANESSA NEGATI VE negati ve Not Available [facility] ([facility]) [address] [place], [address], 10/10/2024 06:43:33 10/05/19 25 10/09/2024 NUSWA B BV VANESSA+C AND6+ CT/GC /T... aaron krusei, VANESSA NEGATI VE negati ve Not Available [facility] ([facility]) [address] [place], [address], 10/10/2024 06:43:33 10/05/1910/09/2024 NUSWA B BV VANESSA+C AND6+ CT/GC /T... trich vag by VANESSA NEGATI VE negati ve Not Available [facility] ([facility]) [address] [facility], [place], [address], 10/10/2024 06:43:33 10/05/19 25 10/09/2024 NUSWA B BV VANESSA+C AND6+ CT/GC /T... chlamydia trachomatis, VANESSA NEGATI VE negati ve Not Available [facility] ([facility]) [address] [place], [address], 10/10/2024 06:43:33 10/05/1910/09/2024 NUSWA B BV VANESSA+C AND6+ CT/GC /T... neisseria gonorrhoeae, VANESSA NEGATI VE negati ve Not Available [facility] ([facility]) [address] [place], [address], 10/10/2024 06:43:33 10/05/1910/04/2024 urina lysis , dipst ick Leukocytes Trace Not Available In-Offi ce Order Internal Use Only DO Not Attach Compendium DO Not Attach Compendium, Do Not Delete/merge, [id number] 10/04/2024 15:04:48 10/05/19 25 10/04/2024 urina lysis , dipst ick Nitrite negati ve Not Available In-Office Order Internal Use Only DO Not Attach Compendium DO Not Attach Compendium, Do Not Delete/merge, [facility] 10/04/2024 15:04:48 10/05/19 25 10/04/2024 urina lysis , dipst ick Urobilinogen .2 Not Available In-Of fice Order Internal Use Only DO Not Attach Compendium DO Not Attach Compendium, Do Not Delete/merge, [facility] 10/04/2024 15:04:48 10/05/19 25 10/04/2024 urina lysis , dipst ick Protein Negati ve Not Available In-Office Order Internal Use Only DO Not Attach Compendium DO Not Attach Compendium, Do Not Delete/merge, [facility] 10/04/2024 15:04:48 10/05/19 25 10/04/2024 urina lysis , dipst ick pH 5.5 Not Available In-Office Order Internal Use Only DO Not Attach Compendium DO Not Attach Compendium, Do Not Delete/merge, [facility] 10/04/2024 15:04:48 10/05/19 25 10/04/2024 urina lysis , dipst ick Blood Negati ve Not Available In-Office Order Internal Use Only DO Not Attach Compendium DO Not Attach Compendium, Do Not Delete/merge, [facility] 10/04/2024 15:04:48 10/05/19 25 10/04/2024 urina lysis , dipst ick Specific [place] 1.030 Not Available In-Off ice Order Internal Use Only DO Not Attach Compendium DO Not Attach Compendium, Do Not Delete/merge, [facility] 10/04/2024 15:04:48 10/05/19 25 10/04/2024 urina lysis , dipst ick Ketone Negati ve Not Available In-Office Order Internal Use Only DO Not Attach Compendium DO Not Attach Compendium, Do Not Delete/merge, [facility] 10/04/2024 15:04:48 10/05/19 25 10/04/2024 urina lysis , dipst ick Bilirubin Negati ve Not Available In-Office Order Internal Use Only DO Not Attach Compendium DO Not Attach Compendium, Do Not Delete/merge, 10/04/2024 15:04:48 10/05/1910/04/2024 urina lysis , dipst ick Glucose Negati ve Not Available In-Office Order Internal Use Only DO Not Attach Compendium DO Not Attach Compendium, Do Not Delete/merge, 10/04/2024 15:04:48 10/05/1910/04/2024 urina lysis , dipst ick Appearance Clear Not Available In-Offi ce Order Internal Use Only DO Not Attach Compendium DO Not Attach Compendium, Do Not Delete/merge, 10/04/2024 15:04:48 10/05/1910/04/2024 urina lysis , dipst ick Color Yellow Not Available In-Office Order Internal Use Only DO Not Attach Compendium DO Not Attach Compendium, Do Not Delete/merge, 10/04/2024 15:04:48 11/23/1905/29/2016 MAMMO , scree jony, bilat eral No observ ation record ed. [facility] [address] [place], [address], 08/06/2024 14:54:22 12/05/19 23 12/04/2022 US, breas t, bilat eral No observ ation record ed. [facility] - Radiology [address] [place], [address], 08/06/2024 14:54:22 12/05/19 23 12/04/2022 MAMMO , diagn ostic , digit al, bilat eral No observ ation record ed. [facility] Radiology [address] [place], [address], 08/06/2024 14:54:22 12/05/19 23 12/04/2022 MAMMO , diagn ostic , digit al, bilat eral No observ ation record ed. [facility] Radiology [address] [place], [address], 08/06/2024 14:54:21 12/05/19 23 12/04/2022 MAMMO , diagn ostic , digit al, bilat eral No observ ation record ed. [facility] - Radiology [address] [place], [address], 08/06/2024 14:54:21 12/31/19 XR, chest No observ ation record ed. [facility] [address] [place], [address], 08/06/2024 14:54:21 Result Notes None recorded. Problems Name Problem SNOMED Code Status Onset Date Resolution Date Notes Provider Name and Address Organization Details Recorded Time Acute gastritis 05369348 Active Not Available [facility] 3 01:08:11 SARS-CoV-2 mRNA vaccine declined 2810795665 Active 2022 Not Available [facility] 3 01:08:11 History of left mastectomy 508831038 Active 2024 Myranda Granados MD Attn: Accounting ,[address] [place], [address] , [facility] 15:11:13 Tubular adenomatous polyp of colon 627719554 Active 2024 Myranda Granados MD Attn: Accounting ,[address] [place], [address] , [facility] 5 15:11:14 Nicotine dependence 84615463 Active 2024 Myranda Granados MD Attn: Accounting ,[address] [place], [address] , [facility] 5 15:11:16 Notes:Some problems listed i n Document: #[id number] could not be added to this patient's chart. Please review this document and add these problems to the patient's chart manually as needed. Problem Notes None recorded. Procedures Surgical History Date Name Laterality Status Provider Name and Address Organization Details Recorded Time 2024 Date of Last Mammogram completed Emely Valente MA [facility] 5 14:37:46 2023 Mastectomy completed Mesha West [facility] 5 14:42:26 2022 Date of Last Pap Smear completed Emely Valnete [facility] 5 14:36:22 2015 esophagogastroduodenoscopy completed Jorge Luis Gallegos MD Attn: Leanne kathryn,[address] [facility], [place], [address], [facility] 3 15:20:47 2015 colonoscopy completed Myranda Granados MD Attn: Leanne peralta,[address] [facility], [place], [address], [facility] 3 15:21:06 Tubal Ligation completed Miles Mckeon [facility] 8 11:18:23 biopsy of breast completed Emely Valente [facility] 3 10:39:40 Imaging Results None recorded. Procedure Notes None recorded. Medical Equipment None Reported. Allergies No known drug allergies Medications Name Sig Start Date Stop Date Status Note LastModified by Organization Details LastModified Time cyclobenzap rine 10 mg tablet 06/06 completed Not Available Not Available Not Available fluconazole 100 mg tablet TAKE 1 TABLET BY MOUTH EVERY DAY 08/06 completed Not Available Not Available Not Available paroxetine 10 mg tablet TAKE 1 TABLET BY MOUTH EVERY DAY active Not Available Not Available No t Available Lidocaine Viscous 2 % mucosal solution 08/06 completed Not Available Not Available Not Available hydrocodone 5 mg-acetamin ophen 325 mg tablet TAKE 1 TABLET BY MOUTH EVERY 6 HOURS NEEDED FOR PAIN active Not Available Not Available No t Available meloxicam 15 mg tablet TAKE 1 TABLET BY MOUTH EVERY DAY active Not Available Not Available No t Available ondansetron HCl 4 mg tablet 08/06 completed Not Available Not Available Not Available metronidazo le 500 mg tablet TAKE 1 TABLET BY MOUTH TWICE DAILY active Not Available Not Available No t Available sulfamethox azole 800 mg-trimetho prim 160 mg tablet TAKE 1 TABLET BY MOUTH EVERY 12 HOURS FOR 3 DAYS DIRECTED 08/06 completed Not Available Not Available Not Available tramadol 50 mg tablet 08/06 completed Not Available Not Available Not Available ondansetron 8 mg disintegrat ing tablet 08/06 completed Not Available Not Available Not Available dicyclomine 20 mg tablet 08/06 completed Not Available Not Available Not Available ciprofloxac in 0.3 % eye drops 08/06 completed Not Available Not Available Not Available cephalexin 500 mg capsule active Not Available Not Available Not Available pantoprazol e 40 mg tablet,salome yed release Take 1 tablet every day by oral route before meals for 30 days. active Not Available Not Available No t Available neomycin-po lymyxin-dex ameth 3.5 mg/mL-10,00 0 unit/mL-0.1 % eye drops 08/06 completed Not Available Not Available Not Available ranitidine 150 mg tablet 06/06 completed Not Available Not Available Not Available dexamethaso ne 4 mg tablet 08/06 completed Not Available Not Available Not Available gabapentin 300 mg capsule TAKE ONE CAPSULE BY MOUTH EVERY MORNING AND TAKE 3 CAPSULES BY MOUTH AT [facility] active Not Available Not Available No t Available Replens vaginal gel USE ONE APPLICATO R VAGINALLY EVERY OTHER DAY AND THEN ADJUST TO NEEDED. active Not Available Not Available No t Available mirtazapine 15 mg tablet Take 1 tablet every day by oral route. active Not Available Not Available No t Available ergocalcife rol (vitamin D2) 1,250 mcg (50,000 unit) capsule 06/06 completed Not Available Not Available Not Available levofloxaci n 500 mg tablet 08/06 completed Not Available Not Available Not Available methylpredn isolone 4 mg tablets in a dose pack 08/06 completed Not Available Not Available Not Available clobetasol 0.05 % scalp solution APPLY TOPICALLY TWICE DAILY APPLY TO BOTH HANDS 2-3 TIMES DAILY DIRECTED active Not Available Not Available No t Available ondansetron 4 mg disintegrat ing tablet active Not Available Not Available N ot Available naproxen 500 mg tablet TAKE 1 TABLET BY MOUTH TWICE DAILY active Not Available Not Available No t Available vitamin B complex active Not Available Not Available Not Available lidocaine 5 % topical ointment MASSAGE INTO SORE AREAS THREE TIMES DAILY TO FOUR TIMES DAILY DIRECTED active Not Available Not Available No t Available [employer] COVID-19 Ag Home Test kit active Not Available Not Available Not Available Vitals Date Recorded Body height Body mass index (BMI) Body weight Respiratory rate Body temperature Heart rate Oxygen saturation Oxygen saturation in Arterial blood by Pulse oximetry Systolic blood pressure Diastolic blood pressure Provider Name and Address Organization Details Last Updated DateTime 5 166.37 cm 24.5 kg/m2 89165.9 8 g 16 /min 97.7 [degF] 78 /min 100 % 100 % 136 mm[Hg] 80 mm[Hg] Mesha West MA [facility] 5 14:45:20 Date Recorded Body height Body mass index (BMI) Body weight Oxygen saturation Oxygen saturation in Arterial blood by Pulse oximetry Heart rate Systolic blood pressure Diastolic blood pressure Provider Name and Address Organization Details Last Updated DateTime 5 166.37 cm 23.9 kg/m2 08515.4 9 g 98 % 98 % 71 /min 122 mm[Hg] 80 mm[Hg] Emely Valente MA [facility] 5 14:39:16 Date Recorded Body height Body mass index (BMI) Body weight Heart rate Oxygen saturation Oxygen saturation in Arterial blood by Pulse oximetry Respiratory rate Systolic blood pressure Diastolic blood pressure Provider Name and Address Organization Details Last Updated DateTime 3 166.37 cm 23.3 kg/m2 30375.1 2 g 84 /min 97 % 97 % 14 /min 120 mm[Hg] 80 mm[Hg] Mesha West MA [facility] 3 14:10:03 Date Recorded Body height Body mass index (BMI) Body weight Oxygen saturation Oxygen saturation in Arterial blood by Pulse oximetry Heart rate Systolic blood pressure Diastolic blood pressure Provider Name and Address Organization Details Last Updated DateTime 3 166.37 cm 23.1 kg/m2 41075.5 2 g 97 % 97 % 71 /min 128 mm[Hg] 78 mm[Hg] Emely Valente MA [facility] 3 10:42:12 Date Recorded Body height Body mass index (BMI) Body weight Oxygen saturation Oxygen saturation in Arterial blood by Pulse oximetry Heart rate Respiratory rate Systolic blood pressure Diastolic blood pressure Provider Name and Address Organization Details Last Updated DateTime 3 166.37 cm 23.8 kg/m2 18496.8 9 g 99 % 99 % 77 /min 14 /min 118 mm[Hg] 74 mm[Hg] Emely ValenteARIELLA [place] [facility] 3 11:31:23 Social History Question Answer Notes LastModified by Organizat ion Details LastModified Time Tobacco Smoking Status Current Every Day Smoker Cigarettes Myranda Granados MD Attn: [place], [address], [facility] 11/22/2022 14:23:01 How Many Years Have You Consumed Alcohol? 21 Information not available 08/06/2024 Are You Blind Or Do You Have Difficulty Seeing? No Information not available 11/22/2022 What Is Your Level Of Caffeine Consumption? Occasional Information not available 11/22/2022 Are You Deaf Or Do You Have Serious Difficulty Hearing? No Information not available 11/22/2022 What Type Of Diet Are You Following? REGULAR Information not available 11/22/2022 What Was The Date Of Your Most Recent Tobacco Screening? 10/04/2024 Information not available 10/04/2024 What Is Your Current Pack Years? 10-19packyears Information not available 11/22/2022 At What Age Did You Start Smoking Tobacco? 21 Information not available 11/22/2022 How Much Tobacco Do You Smoke? 1 PPW Information not available 08/06/2024 Has Tobacco Cessation Counseling Been Provided? Yes Information not available 11/22/2022 On What Date Was Tobacco Cessation Counseling Provided? 10/04/2024 Information not available 10/04/2024 How Many Years Have You Smoked Tobacco? 22 Information not available 08/06/2024 Sex: Unknown Functional Status Question Answer Note LastModified by Organizat ion Details LastModified Time Do you use any illicit or recreational drugs? No Information not available 11/22/2022 Do you or have you ever used any other forms of tobacco or nicotine? No Information not available 11/22/2022 What is your level of alcohol consumption? Occasional Information not available 06/06/2017 Are you able to care for yourself? Yes Information n ot available 11/22/2022 Mental Status None recorded. Family History Relationship Description Onset Age of this Age Resolved Age Notes LastModified by Organization Details LastModified Time Mother Asthma Not available 06/06/2017 11:19:39 Mother Diabetes mellitus [email or web address] Not available 06/06 11:19:53 Sister Diabetes mellitus [email or web address] Not available 06/06 11:19:53 Sister Hypercholest erolemia [email or web address] Not available 06/06 11:20:09 Medical History Condition Response Acid Reflux (GERD) Y Cancer Y GI Problems Y Gynecological History Statement/Question Response Date of Last Mammogram 08/26/2024 Date of LMP 11/18/2022 Menses Monthly N Date of Last Pap Smear 01/07/2023 Current Control Method Tubal Ligat ion LMP Definite Obstetrics History GPAL:G 3 P 3 0 0 2 Type Value Full Term 3 Living 2 Total 3 Immunizations Vaccine Type Date Status Note Provider Nam e and Address Organization Details Recorded Time M/R 5 completed Not Available [facility] 02/10/2023 16:56:41 mumps 0 completed Not Available [facility] 02/10/2023 16:56:41 DTP 4 completed Not Available [facility] 02/10/2023 16:56:41 DTP 4 completed Not Available [facility] 02/10/2023 16:56:41 DTP 0 completed Not Available [facility] 02/10/2023 16:56:41 DTP 3 completed Not Available [facility] 02/10/2023 16:56:41 OPV 4 completed Not Available [facility] 02/10/2023 16:56:41 OPV 4 completed Not Available [facility] 02/10/2023 16:56:41 OPV 0 completed Not Available [facility] 02/10/2023 16:56:41 OPV 3 completed Not Available [facility] 02/10/2023 16:56:41 Hep A, adult 7 completed Not Available [facility] 02/10/2023 16:56:41 Hep A, adult 6 completed Not Available [facility] 02/10/2023 16:56:41 Influenza, MDCK, trivalent, PF 4 completed Not Available [facility] 10/04/2024 14:23:42 Pneumococcal conjugate PCV20, polysaccharide EQO025 conjugate, adjuvant, PF 5 completed Mesha eWst MA [facility] [place] [place] [facility] 08/10/2024 09:28:24 Past Encounters Encounter ID Performer Location Encounter Start Date Encounter Closed Date Diagnosis/Indication Diagnosis SNOMED-CT Code Diagnosis ICD10 Code Diagnosis Note [id number] MD Salo Mosley (Adult Med) [address] [place] [address] [id number] 0 06/06/2017 11:06:13 06/06/2017 12:15:06 Pain in left arm 128738501 M79.602 Pain of le ft shoulder joint 7692256114 5406354 M25.512 Pain radia ting to left shoulder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
--- OUTSIDE RECORDS SUMMARY | 2024-11-17 00:49 | XMS_ITS | Data Portability ---
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 Patient has finished course of chemotherapy. Now receiving immunotherapy. Imaging review. Mass has decreased Approximately 15-20% in size still remains left breast. no suspicious lymph nodes seen on ultrasound. We will schedule for left mastectomy and sentinel node biopsy left axilla. Procedure was described in detail to the patient. Risks and benefits were discussed. Risks include bleeding infection numbness and swelling of the arm Not available 08/05/2023 12:49:55 09/02/2023 09/02/2023 triple negative left breast carcinoma. Patient has finished course of chemotherapy. s/p mastectomy and sentinel lymph node biopsy. Axillary nodes negative. Tumor margins clear. Now receiving immunotherapy. RTC PRN. Not available 09/02/2023 11:18:28 01/22/2024 01/22/2024 status post mastectomy and axillary node sampling for invasive breast carcinoma. Patient undergoing chemotherapy and radiation. Concerned about a small knot in her left axilla. Most likely suture remnant but no obvious concern from a physical exam standpoint. The patient also had CT scans and ultrasound which are within normal limits. Patient will follow up with Oncology next week. She will follow up here when she needs Port-A-Cath removed [email or web address] Not available 01/22/2024 11:59:11 08/30/2024 08/30/2024 HPI: 49 year old female presents today for evaluation of right ring finger pain that has been ongoing for 2 months. This is a result of a work-related injury. 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 Unsure of the digit's position during injury (flexed versus extended) She presented to the ER on Jul 08, and the x-rays were negative. Localizes pain at the MCP joint and radiates to PIP. Pain is intermittent and the severity of pain depends on activity. Aggravated by gripping and making a fist. Alleviated by position and rest. Currently reports pain as 5/10. Taking naproxen for pain. ROS: Per patient questionnaire Physical Exam: General: Normal appearance. No acute distress. Inspection: No evidence of swelling, erythema, bruising or deformity. Palpation: Nontender to palpation ROM: Loss of DIP joint flexion of the ring finger when the patient actively makes a fist. She can flex the DIP joint when MCP and PIP joints are held in extension. Normal PIP and MCP ROM. Sensation: Sensation intact. Assessment & Plan: Placed in splint. Can come out of it in a safe environment and for ROM exercises. OT ordered place. Rx for Naproxen. Follow Up: 4-6 weeks. If no improvement with OT we will refer her to a hand specialist All questions were answered. Patient verbalized understanding of treatment plan [email or web address] Not available 08/30/2024 22:40:49 09/27/2024 09/27/2024 HPI: 49 year old female presents today for a follow-up of right ring finger pain. This is a result of a work-related injury. 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 She is approximately 3 months from DOI. Since the last visit, the pain no longer radiates, but continues to have pain at the MCP joint. Rate pain 6/10. Continues to endorse aggravating factors of gripping and making a fist. Now she reports that when she grabs something the wrong way, her finger becomes locked in the flexed position. Taking naproxen for pain. Has not started OT due to pending W/C approval. Physical Exam: General: Normal appearance. No acute distress. Inspection: No evidence of swelling, erythema, bruising or deformity. Palpation: Tender to palpation at the MCP joint ROM: Loss of DIP joint flexion of the ring finger when the patient actively makes a fist. She can flex the DIP joint when MCP and PIP joints are held in extension. Normal PIP and MCP ROM. No trigger seen. Sensation: Sensation intact. Assessment & Plan: She would like to try a course of OT before being referred to a hand specialist. Reordered OT. Advised her to work with her W/C licensing representative regarding getting OT approved. Will try Meloxicam for pain Remain in splint at work but come out of it when at home and in a safe environment for ROM to avoid stiffness. Follow Up: 6-8 weeks after a course of OT. All questions were answered. Patient verbalized understanding of treatment plan [email or web address] Not available 09/27/2024 15:01:48 Plan of Treatment Reminders Order Date Submit Date Provider Last Modified By Organization Details Last Modified Time Details Appointments None recorded. Lab None recorded. 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 Pt is w/c. 08/31/24 WOOD GRINDER FAXED FOR APPROVAL 2024 025 [facility], [address], [place], [address], 08:45:24 Procedures None recorded. Surgeries None recorded. Imaging None recorded. Medication Orders meloxicam 15 mg tablet 2024 025 [facility] #[id number], [address], [place], [id number], 14:51:32 naproxen 500 mg tablet 2024 025 [id number], [address], [place], [id number], 22:45:22 Patient TargetsNo targets recorded. Patient InstructionsNo instructions recorded. Reason for Referral Additional InfoInjury Date 0 07/02/2024Injured Body Part R RING FINGERWorker's Comp BERT Hall Phone Adjuster please contact pt to schedule. Pt is w/c. 08/31/24 WOOD GRINDER FAXED FOR APPROVAL Referring Physician: Effie Ferris, Orthopedic Surgery, Encounter Date: 08/30/2024 Results Created Date Observation Date Name Description Value Unit Range Abnormal Flag Note LastModifiedBy Organization Detail LastModifiedTime 08/18/1908/18/2023 MRSA/ STAPH AUREU S, NASAL , PCR MRSA, nasal NEGATI VE Not Available [facility] (Lab) [address] [place], [address], 08/18/2023 19:50:43 08/18/19 24 08/18/2023 MRSA/ STAPH AUREU S, NASAL , PCR staph aureus, nasal NEGATI VE Not Available [facility] (Lab) [address] [place], [address], 08/18/2023 19:50:43 08/20/19 24 08/20/2023 PREG TEST URINE QUAL urine preg, qual NEGATI VE negati ve Not Available [facility] (Lab) [address] [place], [address], 08/20/2023 08:10:47 08/20/19 24 08/20/2023 PREG TEST URINE QUAL lot # [id number] Not Available [facility] (Lab) [address] [place], [address], 08/20/2023 08:10:47 08/20/19 24 08/20/2023 PREG TEST URINE QUAL exp date 2024 Not Available [facility] (Lab) [address] [place], [address], 08/20/2023 08:10:47 08/20/19 24 08/20/2023 PREG TEST URINE QUAL pos QC POSITI VE Not Available [facility] (Lab) [address] [place], [address], 08/20/2023 08:10:47 08/20/19 24 08/20/2023 PREG TEST URINE QUAL neg QC NEGATI VE Not Available [facility] (Lab) [address] [place], [address], 08/20/2023 08:10:47 07/29/19 24 07/29/2023 US, beau t, bilat eral, limit ed [facility] [address] [place] [address] Patien t Name: MELLISSA HUFF Access ion #: [id number] Sex: F : 1974 3 Dictat ed By: Kath Pereyra Attend ing Physic pietro: FERNANDO PHELAN Orderi Physic pietro: FERNANDO PHELAN Exam Date: 2023 11:17 AM Exam Name: US BREAST LIMITE D BILAT Admitt ing Diagno sis(es ): REASON FOR EXAM: post chemo treatm ent COMPAR PERLITA: 3; 4; 3 TECHNI QUE: Bilate ral CC and MLO views are obtain ed utiliz ing digita l mammog raphic images obtain ed using a mammog raphic system . 3-D imagin g with tomosy nthesi s combin ed with 2-D imagin g were acquir ed. Target ed left breast ultras ound was perfor med. FINDIN GS: BREAST COMPOS ITION: The bilate ral breast s are hetero geneou sly dense, which may obscur e small masses . There is a mass in the left breast at 3:00 amorph ic calcif icatio ns. There is a hetero geneou s mass in the left breast at 3:00 locate d 3 cm from the nipple measur ing 4.6 x 3.3 x 3.7 cm, previo usly measur ing 5.8 x 3.8 x 5.2 cm. There are no abnorm al lymph nodes in the left axilla . IMPRES JONY: Slight interv al decrea se in left breast mass at 3:00 measur ing 4.6 cm, previo usly measur ing 5.8 cm. This is consis tent with biopsy -prove n malign griffin. Recomm end oncolo gic and surgic al treatm ent. BI-RAD S 6: Biopsy proven malign griffin Electr onical ly Signed by: Kath Pereyra at 2023 12:03: 30 PM Page 1 [email or web address] [facility] (Imaging) [address] [place], [address], 07/30/2023 14:23:21 07/29/19 24 07/29/2023 MAMMO , diagn ostic , tomos ynthe sis, bilat eral [facility] [address] [place] [address] Patien t Name: MELLISSA HUFF Access ion #: [id number] Sex: F : 1974 3 Dictat ed By: Kath Pereyra Attend ing Physic pietro: FERNANDO PHELAN Orderi Physic pietro: FERNANDO PHELAN Exam Date: 2023 10:46 AM Exam Name: MG DIAG BREAST DOMENICA BILAT Admitt ing Diagno sis(es ): REASON FOR EXAM: post chemo treatm ent COMPAR PERLITA: 3; 4; 3 TECHNI QUE: Bilate ral CC and MLO views are obtain ed utiliz ing digita l mammog raphic images obtain ed using a mammog raphic system . 3-D imagin g with tomosy nthesi s combin ed with 2-D imagin g were acquir ed. Target ed left breast ultras ound was perfor med. FINDIN GS: BREAST COMPOS ITION: The bilate ral breast s are hetero geneou sly dense, which may obscur e small masses . There is a mass in the left breast at 3:00 amorph ic calcif icatio ns. There is a hetero geneou s mass in the left breast at 3:00 locate d 3 cm from the nipple measur ing 4.6 x 3.3 x 3.7 cm, previo usly measur ing 5.8 x 3.8 x 5.2 cm. There are no abnorm al lymph nodes in the left axilla . IMPRES JONY: Slight interv al decrea se in left breast mass at 3:00 measur ing 4.6 cm, previo usly measur ing 5.8 cm. This is consis tent with biopsy -prove n malign griffin. Recomm end oncolo gic and surgic al treatm ent. BI-RAD S 6: Biopsy proven malign griffin Electr onical ly Signed by: Kath Pereyra at 2023 12:03: 30 PM Page [address] (Imaging) [address] [place], [address], 07/30/2023 14:23:21 07/29/19 24 07/29/2023 US, garyas t, compl ete No observ ation record ed. [address] [place], [address], 07/30/2023 14:25:58 07/29/19 24 07/29/2023 US, breas t, compl ete No observ ation record ed. [address] [place], [address], 07/30/2023 14:26:04 08/20/19 24 08/20/2023 NM, lymph scan [facility] [address] [place] [address] Patien t Name: MELLISSA HUFF Access ion #: [id number] Sex: F : 1974 6 Locati on: Attend ing Physic pietro: FERNANDO PHELAN Orderi ng Physic pietro: FERNANDO PHELAN Exam Date: 08/20/19 8:03 AM Exam Name: NM LYMPHA TIC Admitt ing Diagno sis(es ): RADIOL OGY REPORT - FINAL EXAM: NM LYMPHA TIC HISTOR Y: LEFT SIDE BREAST CANCER 48-yea r-old female with left-s ided breast cancer . COMPAR PERLITA: Diagno stic mammog gay and left breast ultras ound examin ations dated 2023. TECHNI QUE: 1 mCi techne tium 99m sulfur colloi d was divide d into 4 aliquo ts and inject ed subder mal around the left nipple . Scinti graphi c imagin g of the left chest and axilla was perfor med for 65 minute s post inject ion. FINDIN GS: No signif icant uptake is identi fied in the left axilla ry or mammar y chain lymph nodes. Page 1 of 2 [facility] Name: MELLISSA HUFF Access ion #: [id number] Sex: F : 1974 6 Exam Date: 08/20/19 8:03 AM Exam Name: NM LYMPHA TIC Admitt ing Diagno sis(es ): IMPRES JONY: Status post left breast lympho scinti graphy . No signif icant uptake is identi fied in the left axilla ry or mammar y chain lymph nodes. Create d and electr onical ly signed by: Goldy levine MD Signed Date: 08/20/19 10:27 AM (CT) Dictat ed by: Goldy levine MD (CT) (CT) Page 2 of [address] (Imaging) [address] [place] [address], [address], 08/20/2023 12:14:43 08/20/1908/20/2023 NM, lymph scan No observ ation record ed. [email or web address] [facility] [address] [place], [address], 08/21/2023 15:27:38 10/16/19 24 10/14/2023 CT, abdom en + pelvi s, w/ contr ast No observ ation record ed. BARCODE Not Available 2023 13:50:31 01/22/20 24 01/16/2024 US, breas t, unila teral No observ ation record ed. [facility] Not Available 2023 15:06:14 08/17/19 25 07/08/2024 XR, hand, 2 view No observ ation record ed. [email or web address] Not Available 2024 14:41:29 Result Notes Documentation Provider Name and Address Organization Details Recorded Time Nm, Lymph Scan : [facility] [address] [place] [address] Patient Name: MARKO BOWSER Sex: F : 1975 Location: Attending Physician: RUSSELL BLUM Ordering Physician: RUSSELL BLUM Exam Date: 08/20/2023 8:03 AM Exam Name: NM LYMPHATIC Admitting Diagnosis(es): RADIOLOGY REPORT - FINAL EXAM: NM LYMPHATIC HISTORY: LEFT SIDE BREAST CANCER 48-year-old female with left-sided breast cancer. COMPARISON: Diagnostic mammography and left breast ultrasound examinations dated 07/29/2023. TECHNIQUE: 1 mCi technetium 99m sulfur colloid was divided into 4 aliquots and injected subdermal around the left nipple. Scintigraphic imaging of the left chest and axilla was performed for 65 minutes post injection. FINDINGS: No significant uptake is identified in the left axillary or mammary chain lymph nodes. Page 1 of 2 [facility] Patient Name: MARKO BOWSER Sex: F : 1975 Exam Date: 08/20/2023 8:03 AM Exam Name: NM LYMPHATIC Admitting Diagnosis(es): IMPRESSION: Status post left breast lymphoscintigraphy. No significant uptake is identified in the left axillary or mammary chain lymph nodes. Created and electronically signed by: Goldy Nuñez MD Signed Date: 08/20/2023 10:27 AM (CT) Dictated by: Goldy Nuñez MD (CT) (CT) Page 2 of 2 ARIELLA Jacob [employer] 08/20/2023 12:14:43 Problems Name Problem SNOMED Code Status Onset Date Resolution Date Notes Provider Name and Address Organization Details Recorded Time Disorder of shoulder 192589817 Active Not Available [facility] 3 19:32:04 Mass of left breast 14556671883604 103 Active 2022 Russell reardon MD [address] [facility] [address] [place] [address], [place], [address] , [employer] 3 13:45:33 Triple-ne gative breast cancer 253487909 Active 2023 Russell reardon MD [address], [place] [address], [place], [address] , [employer] 4 15:25:30 Mass of left axillary region 03503728207506 9108 Active 2023 Russell reardon MD [address], [place] [address], [place], [address] , [employer] 4 13:34:53 Pain in right hand 30321434126473 9 Active 2024 SASCHA Bailey, [employer] 5 15:30:27 Problem Notes None recorded. Procedures Surgical History Date Name Laterality Status Provider Name and Address Organization Details Recorded Time 4 other completed Martha Jameson MA [employer] 08/21/2023 12:41:13 3 Blank Procedure Note completed Russell gotti MD [address], [place], [address], [facility] [employer] [facility] 12/17/2022 11:59:05 6 Colonoscopy completed Martha Jameson MA [facility] 12/16/2022 12:23:45 5 Tubal Ligation completed Melissa Lujan CNA [facility] 08/30/2024 15:29:14 Imaging Results None recorded. Procedure Notes None recorded. Medical Equipment None Reported. Allergies No known drug allergies Medications Name Sig Start Date Stop Date Status Note LastModified by Organization Details LastModified Time cyclobenzap rine 10 mg tablet 08/16 completed Not Available Not Available Not Available fluconazole 100 mg tablet TAKE 1 TABLET BY MOUTH EVERY DAY 08/16 completed Not Available Not Available Not Available silver sulfadiazin e 1 % topical cream APPLY TOPICALLY TO THE AFFECTED AREA TWICE DAILY 08/16 completed Not Available Not Available Not Available prednisone 10 mg tablet TAKE 3 TABLETS BY MOUTH DAILY FOR 5 DAYS THE TAKE 2 TABLETS BY MOUTH DAILY FOR 5 DAYS THEN TAKE 1 TABLET BY MOUTH DAILY FOR 5 DAYS 08/16 completed Not Available Not Available Not Available paroxetine 10 mg tablet TAKE 1 TABLET BY MOUTH EVERY DAY active Not Available Not Available No t Available azithromyci n 250 mg tablet TAKE 2 TABLETS BY MOUTH FOR 1 DAY THEN TAKE 1 TABLET BY MOUTH DAILY FOR 4 DAYS 08/16 completed Not Available Not Available Not Available Lidocaine Viscous 2 % mucosal solution 08/16 completed Not Available Not Available Not Available hydrocodone 5 mg-acetamin ophen 325 mg tablet TAKE 1 TABLET BY MOUTH EVERY 6 HOURS NEEDED FOR PAIN active Not Available Not Available No t Available meloxicam 15 mg tablet TAKE 1 TABLET BY MOUTH EVERY DAY active Not Available Not Available No t Available ondansetron HCl 4 mg tablet TAKE 1 TABLET BY MOUTH EVERY 8 HOURS 08/16 completed Not Available Not Available Not Available acetaminoph en 300 mg-codeine 30 mg tablet TAKE 1 TABLET BY MOUTH EVERY 6 HOURS FOR UP TO 7 DAYS NEEDED FOR PAIN 08/16 completed Not Available Not Available Not Available capecitabin e 500 mg tablet active Not Available Not Available Not Available sulfamethox azole 800 mg-trimetho prim 160 mg tablet TAKE 1 TABLET BY MOUTH EVERY 12 HOURS FOR 3 DAYS DIRECTED 08/16 completed Not Available Not Available Not Available Vitamins B Complex capsule TAKE 1 TABLET BY MOUTH DAILY active Not Available Not Available No t Available tramadol 50 mg tablet TAKE 1 TABLET BY MOUTH EVERY 6-8 HOURS NEEDED 08/16 completed Not Available Not Available Not Available ondansetron 8 mg disintegrat ing tablet DISSOLVE 1 TABLET ON THE TONGUE THREE TIMES DAILY 08/16 completed Not Available Not Available Not Available oxycodone-a cetaminophe n 5 mg-325 mg tablet TAKE 1 TABLET BY MOUTH EVERY 4 HOURS NEEDED FOR PAIN active Not Available Not Available No t Available dicyclomine 20 mg tablet TAKE 1 TABLET BY MOUTH THREE TIMES DAILY 08/16 completed Not Available Not Available Not Available ciprofloxac in 0.3 % eye drops 08/16 completed Not Available Not Available Not Available cephalexin 500 mg capsule 08/16 completed Not Available Not Available Not Available pantoprazol e 40 mg tablet,salome yed release active Not Available Not Available Not Available neomycin-po lymyxin-dex ameth 3.5 mg/mL-10,00 0 unit/mL-0.1 % eye drops INSTILL 1 DROP INTO RIGHT EYE FOUR TIMES DAILY FOR 7 DAYS 08/16 completed Not Available Not Available Not Available dexamethaso ne 4 mg tablet 08/16 completed Not Available Not Available Not Available hyoscyamine 0.125 mg sublingual tablet 08/16 completed Not Available Not Available Not Available diclofenac potassium 50 mg tablet 08/16 completed Not Available Not Available Not Available gabapentin 300 mg capsule TAKE ONE CAPSULE BY MOUTH EVERY MORNING AND TAKE 3 CAPSULES BY MOUTH AT [facility] active Not Available Not Available No t Available levofloxaci n 500 mg tablet 08/16 completed Not Available Not Available Not Available methylpredn isolone 4 mg tablets in a dose pack FOLLOW PACKAGE DIRECTION S 08/16 completed Not Available Not Available Not Available clobetasol 0.05 % scalp solution APPLY TOPICALLY TWICE DAILY APPLY TO BOTH HANDS 2-3 TIMES DAILY DIRECTED active Not Available Not Available No t Available ondansetron 4 mg disintegrat ing tablet 08/16 completed Not Available Not Available Not Available naproxen 500 mg tablet TAKE 1 TABLET BY MOUTH TWICE DAILY active Not Available Not Available No t Available lidocaine 5 % topical ointment MASSAGE INTO SORE AREAS THREE TIMES DAILY TO FOUR TIMES DAILY DIRECTED active Not Available Not Available No t Available Indicaid COVID-19 Ag Home Test kit 08/16 completed Not Available Not Available Not Available Vitals Date Recorded Body height Body mass index (BMI) Body weight Body temperature Heart rate Respiratory rate Oxygen saturation Oxygen saturation in Arterial blood by Pulse oximetry Systolic blood pressure Diastolic blood pressure Provider Name and Address Organization Details Last Updated DateTime 4 165.1 cm 23.8 kg/m2 22507.7 1 g 98.6 [degF] 89 /min 14 /min 98 % 98 % 130 mm[Hg] 80 mm[Hg] Romina Bruno [place] [employer] [facility] [employer] 4 11:32:07 Date Recorded Body height Body mass index (BMI) Body weight Provider Name and Address Organization Details Last Updated DateTime 08/30/2024 167.64 cm 23.4 kg/m2 32031.89 g Melissa Lujan CNA [place] [employer] [facility] [employer] 08/30/2024 15:28:07 Date Recorded Body height Body mass index (BMI) Body weight Body temperature Heart rate Provider Name and Address Organization Details Last Updated DateTime 09/02/2023 165.1 cm 23.8 kg/m2 93134.71 g 98.6 [degF] 86 /min Martha Jameson MA [facility] Agent Partner [facility] 4 10:00:59 Date Recorded Body height Body mass index (BMI) Body weight Provider Name and Address Organization Details Last Updated DateTime 09/27/2024 167.64 cm 23.4 kg/m2 63209.89 g MACKENZIE Florian [facility] [employer] 09/27/2024 14:41:02 Date Recorded Body height Body mass index (BMI) Body weight Body temperature Heart rate Respiratory rate Oxygen saturation Oxygen saturation in Arterial blood by Pulse oximetry Systolic blood pressure Diastolic blood pressure Provider Name and Address Organization Details Last Updated DateTime 165.1 cm 23.8 kg/m2 17323.7 1 g 98.6 [degF] 86 /min 14 /min 98 % 98 % 120 mm[Hg] 76 mm[Hg] Romina Bruno [facility] [employer] [facility] 11:41:08 Social History Question Answer Notes LastModified by Organizat [employer] Details LastModified Time Tobacco Smoking Status Current Every Day Smoker ARIELLA Jacob, [facility] [employer] [facility] 12/16/2022 12:22:33 What Is Your Level Of Caffeine Consumption? Occasional Information not available 12/16/2022 How Much Tobacco Do You Smoke? 0.25 PPD [email or web address] Information not available 12/16/2022 How Many Years Have You Smoked Tobacco? 31 [email or web address] Information not available 08/30/2024 Sex: Unknown Functional Status Question Answer Note LastModified by Organizat ion Details LastModified Time Do you use any illicit or recreational drugs? No Information not available 12/16/2022 What is your level of alcohol consumption? Occasional Information not available 12/16/2022 Mental Status None recorded. Family History Relationship Description Onset Age of this Age Resolved Age Notes LastModified by Organization Details LastModified Time Mother Asthma [email or web address] Not available 12:19:09 Mother Diabetes mellitus [email or web address] Not available 2022 12:19:28 Sister Diabetes mellitus [email or web address] Not available 2022 12:19:28 Sister Hypercholest erolemia [email or web address] Not available 2022 12:19:42 Medical History Condition Response ULCERS Y GERD/NAUSEA Y HEARTBURN / REFLUX Y CANCER: SPECIFY Y Gynecological HistoryNo gynecological history recorded. Obstetrics History GPAL:G 0 P 0 0 0 0 Past Encounters Encounter ID Performer Location Encounter Start Date Encounter Closed Date Diagnosis/Indication Diagnosis SNOMED-CT Code Diagnosis ICD10 Code Diagnosis Note [id number] Russell reardon MD [facility] General Surgery [address] [address] 12/17/2022 11:00:19 12/17/2022 12:02:19 Mass of left breast 5955422817 8191290 N63.20 [id number] Russell reardon MD [facility] General Surgery [address] [address] 12/24/2022 10:54:51 12/25/2022 12:22:45 Mass of left breast 4953669962 1903375 N63.20 [id number] Russell reardon MD [facility] General Surgery [address] [address] 07/15/2023 11:33:57 07/15/2023 16:14:48 Triple-negative breast cancer [id number] C50.175 [id number] Russell reardon MD [facility] General Surgery [address] [address] 08/05/2023 11:27:48 08/05/2023 15:16:12 Triple-negative breast cancer [id number] C50.442 [id number] Russell reardon MD [facility] General Surgery [address] [place] [address] Ave[address] [address] 09/02/2023 09:59:13 09/02/2023 11:20:37 Triple-negative breast cancer [id number] C50.372 [id number] Russell reardon MD [facility] General Surgery [address] [place] [address] Ave[address] [address] 01/22/2024 11:34:51 01/22/2024 12:00:40 Mass of left axillary region [id number] R22.32 small nodule [id number] Goldy Cartagena MD [facility] [place] [address] [place] [address] 08/30/2024 15:19:02 08/30/2024 16:08:28 Pain in right hand [id number] M79.416 [id number] Goldy Cartagena MD [facility] [place] [address] [place] [address] 09/27/2024 14:32:36 09/27/2024 15:15:26 Pain in right hand [id number] M79.641 Health Concerns Section Related Observation LastModified by Organization Detai ls LastModified Time None Recorded Concern Status LastModified by Organization Details LastModified Time None Recorded Advance Directives Directive None Recorded Payers Insurance Date Sequence Insurance Name Policy Number Policy [place] Covered Member ID [place] Member ID Guarantor Name 09/24/2024 1 [employer] [facility] (MEDICAID HMO) [id number] Marko Bowser [id number] Marko Bowser 09/09/2024 1 [employer] [facility] (MEDICAID HMO) Marko Mendoza [id number] Marko Bowser 09/09/2024 [employer] Marko Bowser Notes Date Note Type Note Provider Name and Address Organization Details Recorded Time 08/05/2023 text/html patient here following up breast ultrasound mammogram. Has triple negative left breast carcinoma treated with chemotherapy. Patient finished with chemotherapy now receiving immunotherapy. patient is having hot flashes possibly due to menopause also some tingling left arm. Russell Blum MD [address] [address], [place], [address], [employer] 08/05/2023 16:21:01 09/02/2023 text/html patient here following up after mastectomy, node dissection. pathology showed negative lymph nodes and clear margins.Has triple negative left breast carcinoma treated with chemotherapy. Patient finished with chemotherapy now receiving immunotherapy. patient is having hot flashes possibly due to menopause also some tingling left arm. Russell Blum MD [address] [address], [place], [address], [employer] 09/02/2023 11:18:31 01/22/2024 text/html patient concerne d about small knot on her axilla. A finishing up radiation and chemotherapy now. Feels good. Having some hand discoloration from chemotherapy Russell Blum MD [address], [place], [address], [employer] 01/22/2024 13:35:19 OBGyn Episode No OBEpisode recorded.
--- NOTE | 2024-11-17 07:15 | WPDANESEPPF ---
Anes - Initial Pre Proc Eval Procedure: Operation Date: 11/17/24 13:30 Proposed Procedures p Colonoscopy - Dominik Pedroza MD Date/Time: 11/17/24 07:15 Surgeon: Dominik Pedroza MD Pre Op Diagnosis: Benign neoplasm of colon, unspecified Patient Data Age: 49 Gender: F Height: 1.65 m Weight: 69 kg Allergies Allergy/AdvReac Type Severity Reaction Status Date / Time No Known Allergies Allergy Verified 10/29/24 08:42 Home Medications ?Medication ?Instructions ?Recorded ?Confirmed ?Type acetaminophen 300 mg-codeine 30 mg 1 tablet PO PRN PRN pain 10/29/24 10/29/24 History tablet capecitabine 500 mg tablet mg 10/29/24 History clobetasol 0.05 % scalp solution 1 applic topical PRN 10/29/24 10/29/24 History gabapentin 300 mg capsule 300 mg PO .nightly 10/29/24 11/17/24 History lidocaine 5 % topical ointment 1 applic topical PRN skin 10/29/24 10/29/24 History mirtazapine 15 mg tablet 15 mg PO DAILY 10/29/24 11/17/24 History oxycodone-acetaminophen 5 mg-325 1 tablet PO Q4-6H PRN pain 10/29/24 11/17/24 History mg tablet pantoprazole 40 mg tablet,delayed 40 mg PO DAILY 10/29/24 11/17/24 History release prednisone 10 mg tablet 10 mg PO DAILY 10/29/24 11/17/24 History Patient hx anesthesia problems: none Family hx anesthesia problems: none Results Review: All pre-operative results and documents have been reviewed as part of the pre-operative evaluation. [facility] Past Medical History Medical History (Updated 11/17/24 @ 04:46 by Tung Sarabia DO) History of cancer of left breast Surgical History Surgical History (Updated 11/17/24 @ 04:46 by Tung Sarabia DO) History of tubal ligation H/O mastectomy Social History Social History Smoking packs per day: 0.25 Smoking cigarettes per day: 5.0 Years smoked: 30 Smoking pack-years: 7.50 Smoking status: Current every day smoker Tobacco type: cigarettes Alcohol use details: social Substance use type: marijuana and crack/cocaine Living arrangements: with family Spiritual care concerns: No Anes - Eval Final PreProcedure Day of Procedure 11/17/24 07:15 Patient weight: normal Heart: regular rate and rhythm Lungs: clear to auscultation and normal air movement Airway: Mallampati scale class II Neurological: alert and oriented Last oral intake: >/= 8 hours ASA classification: III Emergent: no Anesthetic plan: proceed Anesthesia type and monitoring: general GIVS and standard monitoring Results Review: All pre-operative results and documents have been reviewed as part of the pre-operative evaluation. Informed Consent: The patient's anesthetic plan and its attendant risks and benefits were discussed with the patient/family/POA. Questions were solicited and answers provided to the satisfaction of the patient/family/POA.
[2024-11-17 12:15] VITALS: BP 128/82; PULSE 71; RESP 18; TEMP 36.7; O2SAT 100
[2024-11-17] MEDS: LACTATED RINGERS 1,000 ML 150 ML IV CONT (12:23)
--- NOTE | 2024-11-17 12:26 | P.HP_ITS ---
H&P: HPI History of Present Illness Date/Time: 11/17/24 12:26 Chief Complaint: history of colon polyps Narrative: The patient has a history of colonic polyps, the last colonoscopy was Review of Systems Review of Systems: All systems reviewed & are unremarkable except as noted in HPI and below PMFSH Past Medical History Medical History (Updated 11/17/24 @ 12:26 by Dominik Pedroza MD) History of cancer of left breast Surgical History Surgical History (Updated 11/17/24 @ 04:46 by Tung Sarabia DO) History of tubal ligation H/O mastectomy Social History Social History Smoking packs per day: 0.25 Smoking cigarettes per day: 5.0 Years smoked: 30 Smoking pack-years: 7.50 Smoking status: Current every day smoker Tobacco type: cigarettes Alcohol use details: social Substance use type: marijuana and crack/cocaine Living arrangements: with family Spiritual care concerns: No Meds Home Medications and Allergies Home Medications ?Medication ?Instructions ?Recorded ?Confirmed ?Type acetaminophen 300 mg-codeine 30 mg 1 tablet PO PRN PRN pain 10/29/24 10/29/24 Hi story tablet capecitabine 500 mg tablet mg 10/29/24 History clobetasol 0.05 % scalp solution 1 applic topical PRN 10/29/24 10/29/24 History gabapentin 300 mg capsule 300 mg PO .nightly 10/29/24 11/17/24 History lidocaine 5 % topical ointment 1 applic topical PRN skin 10/29/24 10/29/24 History mirtazapine 15 mg tablet 15 mg PO DAILY 10/29/24 11/17/24 History oxycodone-acetaminophen 5 mg-325 1 tablet PO Q4-6H PRN pain 10/29/24 11/17/24 History mg tablet pantoprazole 40 mg tablet,delayed 40 mg PO DAILY 10/29/24 11/17/24 History release prednisone 10 mg tablet 10 mg PO DAILY 10/29/24 11/17/24 History Allergies Allergy/AdvReac Type Severity Reaction Status Date / Time No Known Allergies Allergy Verified 10/29/24 08:42 Vital Signs Vital Signs - 24 hr 11/17/24 12:15 Temperature 98.1 F Pulse Rate 71 Respiratory Rate 18 Blood Pressure 128/82 Pulse Oximetry 100 Oxygen Delivery Room Air Exam Const: General: cooperative and healthy appearing Resp: Effort & Inspection: normal respiratory effort and able to speak in complete sentences Auscultation: clear to auscultation bilaterally Cardio: Rate: regular rate Rhythm: regular rhythm GI: Inspection: normal to inspection GI Palp: No No hepatosplenomegaly present Auscultation: normal bowel sounds Rectal Exam: deferred Skin: General skin exam: normal color Psych: Appearance: grossly normal Mental Status: mental status grossly normal Assessment and Plan Assessment and plan (1) History of colonic polyps: Code(s): Z86.0100 - Personal history of colon polyps, unspecified Status: Acute Assessment and Plan: The patient is deemed a good candidate for the procedure. Consent signed. Will proceed.
[2024-11-17 12:49] VITALS: BP 134/76; PULSE 80; RESP 22; O2SAT 98
--- NOTE | 2024-11-17 12:49 | S_PTH ---
PATIENT: Muriel Bowser LOC: [facility] U#:[id number] AGE/SX: 49/F ROOM: RE11/17/[address]: Dominik Pedroza MD : 1975 BED: DIS: 11/17/2024 SPEC #: [id number] RECD: 11/17/24 13:18 STATUS: HARPER REBrea #: [id number] ARCHANA: 11/17/24 12:[address]: Dominik Pedroza DEPT: [facility] Surgical RECD BY: Luz Burris ENTERED: 11/17/24 13:19 SP TYPE: Surgical OTHR DR: Myranda Granados, MMaddie Tissues: A - Colon Polypectomy Procedures: Hematoxylin and Eosin Stain Gross and Microscopic Level 4
[2024-11-17 12:59] VITALS: BP 133/79; PULSE 65; RESP 26; O2SAT 100
[2024-11-17 13:09] VITALS: BP 136/72; PULSE 66; RESP 21; O2SAT 100
--- NOTE | 2024-11-17 13:45 | SUR.PHASEII ---
Pt c/o cramping to lower abdomen with some nausea. Pt repositioned, walked to bathroom, Sprite given with minimal relief. Dr. Pedroza at bedside to assess. Abdomen soft, but distended. Pt stated she would like to go home and feels comfortable going home with the cramping. Dr. Pedroza ok to d/c. Pt instructed to call if pain does not subside once home.
== END 2024-11-17 13:47 | disposition home or self-care (01) ==
PROVIDERS: PCP Internal Medicine Infectious Disease; Visit Provider Internal Medicine Gastroenterology
PROC: 0DJD8ZZ Inspection of Lower Intestinal Tract, Via Natural or Artificial Opening Endoscopic (ICD-10-PCS; CPT 45378; principal; 2024-11-17 13:30)
DX: Z12.11 Encounter for screening for malignant neoplasm of colon (principal); D12.2 Benign neoplasm of ascending colon; F17.210 Nicotine dependence, cigarettes, uncomplicated; F12.90 Cannabis use, unspecified, uncomplicated; F14.90 Cocaine use, unspecified, uncomplicated
CPT/HCPCS: 45385; 88305; J2704; J7120